=== PATIENT | female | born 1980 | race African-American/Black ===

== ENCOUNTER 2016-06-02 19:48 | Emergency (ER) | payer OTHER ==
[~2016-06-02 19:48] MED LIST: ALBUTEROL17 GM INH; ANTIVERT PO; AZITHROMYCIN250 MG PO; BIRTH CONTROL PO; CLARITIN10 M3 PO; DESYREL50 MG; HYDROXYZINE HCL10 MG PO; MONTELUKAST SOD10 MG PO; MOTRIN600 MG PO; PHENERGAN25 MG PO; PROPRANOLOL PO; PROTONIX; QVAR7.3 G1 INH; RANITIDINE HCL150 M1 PO; TORADOL10 MG PO; ZANAFLEX4 M1 PO; ZANTAC PO; ZOFRANODT PO
== END 2016-06-02 20:14 | disposition home or self-care (01) ==
LOC: SED 19:48
DX: T78.40XA Allergy, unspecified, initial encounter (principal); L29.9 Pruritus, unspecified; Z88.1 Allergy status to other antibiotic agents; Z88.8 Allergy status to other drugs, medicaments and biological substances
CPT/HCPCS: 96372; 99283; J1040

== ENCOUNTER 2016-07-07 23:19 | Emergency (ER) | payer OTHER ==
[2016-07-07 23:46] LABS: URINE SOURCE CLEAN CATCH
[2016-07-07 23:47] LABS: BASOPHIL# 0.1 X10e3 (0-0.3); BASOPHIL% 0.8 % (0-2.5); EOSINOPHIL# 0.1 X10e3 (0-0.7); EOSINOPHIL% 0.6 % (0.0-7.0); HEMATOCRIT 35.2 % (35.0-45.0); HEMOGLOBIN 11.7 gm/dL (12.0-16.0); LYMPHOCYTE% 34.8 % (17.0-45.0); MEAN CELL VOLUME 93.3 FL (83-96); MEAN CORPUSCULAR HEMOGLOBIN 30.9 PG (28-34); MEAN CORPUSCULAR HGB CONC 33.2 g/dL (30-36); MEAN PLATELET VOLUME 6.6 FL (6.5-11.5); MONOCYTE# 0.9 X10e3 (0-1.0); MONOCYTE% 11.1 % (3.0-12.0); NEUTROPHIL# 4.5 X10e3 (1.5-7.1); NEUTROPHIL% 52.7 % (40-75); PLATELET COUNT 335 X10e3 (140-420); RED BLOOD COUNT 3.77 X10e (3.90-5.30); RED CELL DISTRIBUTION WIDTH 14.6 % (11.0-15.5); WHITE BLOOD COUNT 8.5 X10e3 (4.0-10.5)
[2016-07-07 23:49] LABS: URINE APPEARANCE CLEAR; URINE BILIRUBIN NEG (NEG); URINE COLOR YELLOW; URINE GLUCOSE NEG (NORM); URINE KETONE NEG (NEG); URINE LEUKOCYTE ESTERASE NEG (NEG); URINE NITRATE NEG (NEG); URINE PH 6.5 (5-8); URINE PROTEIN NEG (NEG); URINE UROBILINOGEN 0.2 MG/DL (NORM)
[2016-07-07 23:49] LABS: DIFF IND NO
[2016-07-07 23:50] LABS: URINE BLOOD NEG (NEG)
[2016-07-07 23:51] LABS: MICRO INDICATED? NO
[2016-07-07 23:59] LABS: AMPHETAMINE NEG (NEG); BARBITURATES NEG (NEG); BENZODIAZEPINES NEG (NEG); COCAINE NEG (NEG); MARIJUANA NEG (NEG); OPIATES NEG (NEG); TRICYCLIC ANTIDEPRESSANTS NEG (NEG); U METHADONE NEG (NEG)
[2016-07-08 00:06] LABS: ALBUMIN SERUM 3.9 g/dL (3.5-5.0); BILIRUBIN, DIRECT 0.1 mg/dL (0.0-0.2); BILIRUBIN,INDIRECT 0.2 mg/dL (0.0-0.9); BILIRUBIN,TOTAL 0.3 mg/dL (0.2-2.0); CALCIUM SERUM 8.7 mg/dL (8.4-10.2); GLOM FILT RATE Estimated 83.4 mL/min (>60); PROTEIN TOTAL SERUM 7.5 g/dL (6.0-8.3)
== END 2016-07-08 00:41 | disposition home or self-care (01) ==
LOC: SED 23:19
PROVIDERS: Student in an Organized Health Care Education/Training Program
DX: R10.12 Left upper quadrant pain (principal); L29.9 Pruritus, unspecified; J45.909 Unspecified asthma, uncomplicated; J21.9 Acute bronchiolitis, unspecified; Z98.890 Other specified postprocedural states; Z88.8 Allergy status to other drugs, medicaments and biological substances; Z91.018 Allergy to other foods; Z88.1 Allergy status to other antibiotic agents
CPT/HCPCS: 36415; 80048; 80076; 80307; 81003; 83690; 84703; 85025; 99284

== ENCOUNTER 2016-10-14 00:56 | Emergency (ER) | payer OTHER ==
[~2016-10-14] VITALS: Ht 162.6 cm; Wt 90.7 kg
== END 2016-10-14 04:22 | disposition home or self-care (01) ==
LOC: CED 00:56
DX: M54.5 Low back pain (principal); J45.909 Unspecified asthma, uncomplicated; F41.9 Anxiety disorder, unspecified; F32.9 Major depressive disorder, single episode, unspecified; M19.90 Unspecified osteoarthritis, unspecified site; F17.210 Nicotine dependence, cigarettes, uncomplicated; Z98.890 Other specified postprocedural states; Z79.899 Other long term (current) drug therapy; Z88.5 Allergy status to narcotic agent; Z88.1 Allergy status to other antibiotic agents; Z91.018 Allergy to other foods; X58.XXXA Exposure to other specified factors, initial encounter
CPT/HCPCS: 99283